=== PATIENT | female | born 1960 | race Caucasian/White ===

== ENCOUNTER 2016-12-19 11:38 | Emergency (ER) | payer BC ==
--- NOTE | 2016-12-19 11:54 | EDM.PDOC ---
ED HPI GENERAL MEDICAL PROBLEM - General Chief Complaint: General Stated Complaint: PAIN RIGHT ARM/DIZZY Time Seen by Provider: 12/19/16 11:40 Source of Information: Reports: Patient, Family, RN, RN Notes Reviewed History Limitations: Reports: No Limitations - History of Present Illness INITIAL COMMENTS - FREE TEXT/NARRATIVE: Patient presents to the emergency room at [facility] complaining of an acute onset of dizziness and right arm pain. The symptoms began about one half hour ago. The patient states she was talking on the phone and drinking coffee when her symptoms started. She was in a seated position. The patient states her arm pain is located over the dorsum of the distal aspect of the right deltoid. The patient denies any injury or trauma. No recent surgeries to the affected area. The patient states that her fingers of the right hand feel tingly. The patient denies any falls. No recent back injury or trauma. The patient denies any visual field disturbances. No vision changes. The patient states the right arm pain is throbbing. The patient did not take any medications prior to presentation. Patient was recently seen last week by her primary for a sore throat. The patient was started on azithromycin. The patient denies any balance issues. The patient denies any eye or ear pain Onset: Today, Sudden Onset Date: 12/19/16 Onset Time: 11:15 Right Arm Pain Score (Numeric/FACES): 2 - Related Data Allergies Allergy/AdvReac Type Severity Reaction Status Date / Time No Known Allergies Allergy Verified 12/19/16 11:44 Home Meds: Home Meds . [No Known Home Meds] 12/19/16 [History] Past Medical History - Past Health History Medical/Surgical History: Denies Medical/Surgical History Social & Family History - Tobacco Use Smoking Status *Q: Current Every Day Smoker Years of Tobacco use: 25 Packs/Tins Daily: 1 ED ROS GENERAL - Review of Systems Review Of Systems: See Below Constitutional: Denies: Fever, Chills, Weakness HEENT: Denies: Ear Pain, Eye Pain, Vertigo, Vision Change Respiratory: Denies: Shortness of Breath, Cough Cardiovascular: Denies: Chest Pain, Palpitations GI/Abdominal: Denies: Abdominal Pain, Nausea, Vomiting Musculoskeletal: Reports: Arm Pain (Right arm; distal dorsum of right deltoid) Skin: Reports: No Symptoms Neurological: Reports: Dizziness, Tingling (right hand/fingers). Denies: Headache, Numbness, Paresthesia, Trouble Speaking, Difficulty Walking ED EXAM, GENERAL - Physical Exam Exam: See Below Exam Limited By: No Limitations General Appearance: Alert, No Apparent Distress Eye Exam: Bilateral Eye: EOMI, Normal Inspection, PERRL Ears: Normal External Exam, Normal Canal, Normal TMs Head: Atraumatic, Normocephalic Neck: Supple, Non-Tender Respiratory/Chest: No Respiratory Distress, Lungs Clear, Decreased Breath Sounds Cardiovascular: Normal Peripheral Pulses, Regular Rate, Rhythm GI/Abdominal: Normal Bowel Sounds, Soft, Non-Tender Extremities: Normal Inspection, Normal Range of Motion, Other (Pain on deep palpation of the distal aspect dorsum of right deltoid). No: Joint Swelling Neurological: Alert, Oriented, Normal Cognition, No Motor/Sensory Deficits Skin Exam: Warm, Dry, Intact, Normal Color, No Rash EKG INTERPRETATION EKG Date: 12/19/16 Time: 11:58 Rhythm: NSR Rate (Beats/Min): 56 [place]: Normal P-Wave: Present QRS: Normal ST-T: Normal QT: Normal [place]/PQ Interval: 0.15 Comparison: NA - No Prior EKG EKG Interpretation Comments: 1. Sinus Bradycardia 2. Nonspecific ST & T-wave abnormality 3. Borderline ECG Course - Vital Signs Last Recorded V/S: Last Vital Signs Temp 35.5 C 12/19/16 11:45 Pulse 66 12/19/16 11:45 Resp 18 12/19/16 11:45 BP 183/82 H 12/19/16 12:30 Pulse Ox 99 12/19/16 11:45 - Orders/Labs/Meds Orders: Active Orders 24 hr Category Date Time Status EKG Documentation Completion [RC] STAT Care 12/19/16 11:48 Active Head wo Cont [CT] Stat Exams 12/19/16 11:48 Ordered Sodium Chloride 0.9% [Normal Saline] 1,000 ml Med 12/19/16 12:46 Active IV ONETIME Sodium Chloride 0.9% [Saline Flush] Med 12/19/16 12:46 Active 10 ml FLUSH ASDIRECTED PRN Peripheral IV Insertion Adult [OM.PC] Routine Oth 12/19/16 12:46 Ordered Medication Orders Sodium Chloride (Normal Saline) 1,000 mls @ 999 mls/hr IV ONETIME ONE Stop: 12/19/16 13:46 Sodium Chloride (Saline Flush) 10 ml FLUSH ASDIRECTED PRN PRN Reason: Keep Vein Open Labs: Laboratory Tests 12/19/16 12/19/16 12/19/16 Range/Units 11:59 11:59 12:10 WBC 6.8 (4.0-10.0) x10^3/uL RBC 4.57 (4.00-5.50) x10^6/uL Hgb 15.6 (12.0-16.0) g/dL Hct 45.6 (33.0-47.0) % MCV 99.8 H (78.0-93.0) fL MCH 34.1 H (26.0-32.0) pg MCHC 34.2 (32.0-36.0) g/dL RDW Coeff of Valentin 12.6 (10.0-15.0) % Plt Count 198 (130-400) x10^3/uL Neut % (Auto) 65.6 (50.0-80.0) % Lymph % (Auto) 25.7 (25.0-50.0) % [place] % (Auto) 7.1 (2.0-11.0) % Eos % (Auto) 0.7 (0.0-4.0) % Baso % (Auto) 0.9 (0.2-1.2) % Sodium (136-145) mmol/L Potassium (3.5-5.1) mmol/L Chloride (98-107) mmol/L Carbon Dioxide (21-32) mmol/L BUN (7-18) mg/dL Creatinine (0.55-1.02) mg/dL Est Cr Clr Drug Dosing Estimated GFR (MDRD) Glucose (74-106) mg/dL Calcium (8.5-10.1) mg/dL Urine Color Light yellow (YELLOW) Urine Appearance Clear (CLEAR) Urine pH 5.5 (5.0-8.0) Ur Specific [place] <=1.005 Urine Protein Negative (NEGATIVE) mg/dL Urine Glucose (UA) Negative (NEGATIVE) mg/dL Urine Ketones Negative (NEGATIVE) mg/dL Urine Occult Blood Negative (NEGATIVE) Urine Nitrite Negative (NEGATIVE) Urine Bilirubin Negative (NEGATIVE) Urine Urobilinogen 0.2 (0.2) EU/dL Ur Leukocyte Esterase Negative (NEGATIVE) Urine RBC 0-5 (NOT SEEN) /HPF Urine WBC Not seen (NOT SEEN) /HPF Ur Squamous Epith Cells Rare (NEGATIVE) /HPF Urine Bacteria Rare (NEGATIVE) /HPF Urine Mucus Rare H (NEGATIVE) /LPF Urine Opiates Screen Negative (NEGATIVE) Ur Buprenorphine Scrn Negative (NEGATIVE) Ur Oxycodone Screen Negative (NEGATIVE) Urine Methadone Screen Negative (NEGATIVE) Ur Barbiturates Screen Negative (NEGATIVE) Ur Tricyclics Screen Negative (NEGATIVE) Ur Amphetamine Screen Negative (NEGATIVE) U Methamphetamines Scrn Negative (NEGATIVE) Urine MDMA Screen Negative (NEGATIVE) U Benzodiazepines Scrn Negative (NEGATIVE) U Cocaine Metab Screen Negative (NEGATIVE) U Marijuana (THC) Screen Negative (NEGATIVE) Ethyl Alcohol (0-3) mg/dL 12/19/16 12/19/16 Range/Units 12:10 12:10 WBC (4.0-10.0) x10^3/uL RBC (4.00-5.50) x10^6/uL Hgb (12.0-16.0) g/dL Hct (33.0-47.0) % MCV (78.0-93.0) fL MCH (26.0-32.0) pg MCHC (32.0-36.0) g/dL RDW Coeff of Valentin (10.0-15.0) % Plt Count (130-400) x10^3/uL Neut % (Auto) (50.0-80.0) % Lymph % (Auto) (25.0-50.0) % [place] % (Auto) (2.0-11.0) % Eos % (Auto) (0.0-4.0) % Baso % (Auto) (0.2-1.2) % Sodium 138 (136-145) mmol/L Potassium 3.3 L (3.5-5.1) mmol/L Chloride 101 (98-107) mmol/L Carbon Dioxide 29 (21-32) mmol/L BUN 17 (7-18) mg/dL Creatinine 0.9 (0.55-1.02) mg/dL Est Cr Clr Drug Dosing TNP Estimated GFR (MDRD) > 60 Glucose 95 (74-106) mg/dL Calcium 8.8 (8.5-10.1) mg/dL Urine Color (YELLOW) Urine Appearance (CLEAR) Urine pH (5.0-8.0) Ur Specific [place] Urine Protein (NEGATIVE) mg/dL Urine Glucose (UA) (NEGATIVE) mg/dL Urine Ketones (NEGATIVE) mg/dL Urine Occult Blood (NEGATIVE) Urine Nitrite (NEGATIVE) Urine Bilirubin (NEGATIVE) Urine Urobilinogen (0.2) EU/dL Ur Leukocyte Esterase (NEGATIVE) Urine RBC (NOT SEEN) /HPF Urine WBC (NOT SEEN) /HPF Ur Squamous Epith Cells (NEGATIVE) /HPF Urine Bacteria (NEGATIVE) /HPF Urine Mucus (NEGATIVE) /LPF Urine Opiates Screen (NEGATIVE) Ur Buprenorphine Scrn (NEGATIVE) Ur Oxycodone Screen (NEGATIVE) Urine Methadone Screen (NEGATIVE) Ur Barbiturates Screen (NEGATIVE) Ur Tricyclics Screen (NEGATIVE) Ur Amphetamine Screen (NEGATIVE) U Methamphetamines Scrn (NEGATIVE) Urine MDMA Screen (NEGATIVE) U Benzodiazepines Scrn (NEGATIVE) U Cocaine Metab Screen (NEGATIVE) U Marijuana (THC) Screen (NEGATIVE) Ethyl Alcohol < 3 (0-3) mg/dL Meds: Medications Generic Name Dose Route Start Last Admin Trade Name Freq PRN Reason Stop Dose Admin Sodium Chloride 1,000 mls @ 999 mls/hr 12/19/16 12:46 Normal Saline IV 12/19/16 13:46 ONETIME ONE Sodium Chloride 10 ml 12/19/16 12:46 Saline Flush FLUSH ASDIRECTED PRN Keep Vein Open Discontinued Medications Generic Name Dose Route Start Last Admin Trade Name Freq PRN Reason Stop Dose Admin Enalaprilat 1.25 mg 12/19/16 12:51 Vasotec Iv IVPUSH 12/19/16 12:52 ONETIME ONE - Radiology Interpretation Free Text/Narrative:: No acute intracranial process. See report in EMR CT Results Date: 12/19/16 CT Results Time: 12:52 Departure - Departure Time of Disposition: 13:22 Disposition: Home, Self-Care 01 Condition: Good Clinical Impression: Hypertensive urgency, Dizziness, Right arm pain - Discharge Information Instructions: Hypertension, Rehydration, Adult, Dizziness Referrals: Ange Denis [employer] [Primary Care Provider] - Forms: ED Department Discharge Additional Instructions: 1. Stay well hydrated and rest 2. Avoid adding salt or salt foods 3. If your symptoms get worse, return for further evaluation 4. See your Primary and discussed blood pressure options - Problem List Review Problem List Initiated/Reviewed/Updated: Yes - My Orders Last 24 Hours: My Active Orders 12/19/16 11:48 EKG Documentation Completion [RC] STAT Head wo Cont [CT] Stat 12/19/16 12:46 Sodium Chloride 0.9% [Normal Saline] 1,000 ml IV ONETIME Sodium Chloride 0.9% [Saline Flush] 10 ml FLUSH ASDIRECTED PRN Peripheral IV Insertion Adult [OM.PC] Routine - Assessment/Plan Last 24 Hours: My Active Orders 12/19/16 11:48 EKG Documentation Completion [RC] STAT Head wo Cont [CT] Stat 12/19/16 12:46 Sodium Chloride 0.9% [Normal Saline] 1,000 ml IV ONETIME Sodium Chloride 0.9% [Saline Flush] 10 ml FLUSH ASDIRECTED PRN Peripheral IV Insertion Adult [OM.PC] Routine
[2016-12-19 12:30] VITALS: BP 183/82
[2016-12-19 12:31] LABS: CHLORIDE,CL 101 mmol/L (98-107); SODIUM,NA 138 mmol/L (136-145)
[2016-12-19] MEDS ORDERED: Sodium Chloride 0.9% 10 ML Syringe FLUSH PRN (12:46)
[2016-12-19] MEDS ORDERED: Sodium Chloride 0.9% 1,000 ML IV ONE (12:46)
[2016-12-19] MEDS ORDERED: Enalaprilat 1.25 MG/ML SDV IVPUSH ONE (12:51)
== END 2016-12-19 13:28 | disposition home or self-care (01) ==
LOC: VM.ED 11:38
DX: I16.0 Hypertensive urgency (principal); M79.601 Pain in right arm; R00.1 Bradycardia, unspecified; F17.210 Nicotine dependence, cigarettes, uncomplicated
CPT/HCPCS: 36415; 70450; 80048; 80305; 81001; 85025; 93005; 99284; G0480

== ENCOUNTER 2017-01-16 10:57 | Day surgery (SDC) | payer BC ==
[~2017-01-16 10:57] MED LIST: Lactated Ringers 1,000 ML IV SCH
[2017-01-16] MEDS ORDERED: Propofol 200 MG/20 ML SDV ONE ×2 (12:13→12:30)
[2017-01-16] MEDS ORDERED: fentaNYL 100 MCG/2 ML SDV ONE (12:14)
[2017-01-16 13:23] VITALS: BP 173/90
--- NOTE | 2017-01-17 07:57 | OR ---
PREOPERATIVE DIAGNOSIS: Screening colonoscopy. POSTOPERATIVE DIAGNOSIS: Screening colonoscopy. PROCEDURE PERFORMED: Colonoscopy with polypectomy. INDICATION: The patient is a 56-year-old female, who presents for her first screening colonoscopy at this time. Procedures done in the endoscopy suite. Sedation was given per Anesthesia. She was placed in left lateral position. First, a rectal exam was done, was normal. Scope was introduced in the rectum, slowly advanced through the rectum, sigmoid, descending, transverse, and ascending colon until the cecum was reached. The scope was slowly withdrawn looking at all mucosal surfaces on the way out. No mucosal abnormalities, lesions, or polyps were noted until about 10 cm where a small flat polyp was located, removed by cold biopsy forceps. Otherwise, the patient had moderate-to- severe sigmoid diverticulosis. FINAL DIAGNOSES: 1. Sigmoid diverticulosis. 2. Polyp at 10 cm, pathology pending. BKD: 01/16/2017 12:50:09 MODL: 01/16/2017 19:21:13 /[id number]
== END 2017-01-16 15:00 | disposition home or self-care (01) ==
LOC: VM.SDS 10:57
PROVIDERS: ATTEND Surgery
DX: Z12.11 Encounter for screening for malignant neoplasm of colon (principal); K63.5 Polyp of colon; K57.30 Diverticulosis of large intestine without perforation or abscess without bleeding; F17.210 Nicotine dependence, cigarettes, uncomplicated; E04.1 Nontoxic single thyroid nodule; H10.33 Unspecified acute conjunctivitis, bilateral
CPT/HCPCS: 45380; J2704; J3010; J7120

== ENCOUNTER 2024-06-16 23:30 | Emergency (ER) | payer BC, OTHER ==
[2024-06-16] MEDS: Dexamethasone 4 MG/ML SDV IVPUSH ONE (23:52)
[2024-06-16] MEDS: diphenhydrAMINE 50 MG/ML SDV IVPUSH ONE (23:54)
[2024-06-16] MEDS: Famotidine 20 MG/2 ML SDV IVPUSH ONE (23:56)
[2024-06-17 02:13] VITALS: BP 110/66; PULSE 78
== END 2024-06-17 01:28 | disposition home or self-care (01) ==
LOC: VM.ED 23:30
DX: T78.3XXA Angioneurotic edema, initial encounter (principal); Z79.899 Other long term (current) drug therapy
CPT/HCPCS: 96374; 96375; 99283; 99283-25; J1100; J1200